=== PATIENT | male | born 1995 | race Two or more races ===

== ENCOUNTER 2020-06-27 12:33 | Inpatient (IN) | payer MEDICAID ==
[~2020-06-27] VITALS: Ht 162.6 cm; Wt 52.3 kg
[2020-06-27] MEDS ORDERED: HALOPERIDOL LACTATE 5 MG/ML VIAL ONE (12:50)
[2020-06-27] MEDS ORDERED: DiphenhydrAMINE HCL 50 MG/ML VIAL ONE (12:51)
[2020-06-27] MEDS ORDERED: LORazepam 2 MG/ML VIAL ONE (12:51)
[2020-06-27] MEDS ORDERED: LORazepam 2 MG/ML VIAL IM ONE ×2 (13:00→18:45)
[2020-06-27] MEDS ORDERED: HALOPERIDOL LACTATE 5 MG/ML VIAL IM ONE ×2 (13:00→18:45)
[2020-06-27] MEDS ORDERED: DiphenhydrAMINE HCL 50 MG/ML VIAL IM ONE ×2 (13:00→18:45)
[2020-06-27 15:17] LABS: AMPHET/METH SCREEN,URINE POSITIVE (NEGATIVE); BARBITURATE SCREEN, URINE NEGATIVE (NEGATIVE); BENZODIAZEPINES SCREEN,URINE POSITIVE (NEGATIVE); CANNABINOID SCREEN,URINE POSITIVE (NEGATIVE); COCAINE SCREEN,URINE NEGATIVE (NEGATIVE); METHADONE SCREEN, URINE NEGATIVE (NEGATIVE); OPIATE SCREEN,URINE NEGATIVE (NEGATIVE)
[2020-06-27 15:18] LABS: PHENCYCLIDINE SCREEN,URINE NEGATIVE (NEGATIVE)
[2020-06-27 16:27] LABS: BASOPHILS % (AUTO) 0.5 % (0.0-2.0); EOSINOPHILS % (AUTO) 0.2 % (1.0-6.0); HEMOGLOBIN 14.3 g/dL (13.5-17.5); LYMPHOCYTES # (AUTO) 1.6 K/uL (1.0-4.8); LYMPHOCYTES % (AUTO) 15.3 % (22.0-44.0); MEAN CORPUSCULAR HEMOGLOBIN 30.9 pg (26.0-34.0); MEAN CORPUSCULAR HGB CONC 34.1 G/dL (31.0-37.0); MEAN CORPUSCULAR VOLUME 91 fL (80-100); MONOCYTES # (AUTO) 0.7 K/uL (0.1-1.0); MONOCYTES % (AUTO) 6.8 % (2.0-9.0); NEUTROPHILS # (AUTO) 7.9 K/uL (1.8-7.7); NEUTROPHILS % (AUTO) 77.2 % (40.0-70.0); PLATELET COUNT (AUTO) 322 K/uL (150-450); RED BLOOD CELL COUNT(AUTO) 4.63 MIL/uL (4.50-5.90); RED CELL DISTRIBUTION WIDTH 12.9 % (11.5-14.5)
[2020-06-27 16:34] LABS: ANION GAP 8 mmol/L (8-16); CALCIUM, TOTAL 8.9 mg/dL (8.8-10.5); CARBON DIOXIDE 28 mmol/L (22-29); CHLORIDE 106 mmol/L (98-107); CREATININE 1.02 mg/dL (0.60-1.30); GLOMERULAR FILTR. RATE CALC > 60 mL/min (>60); GLUCOSE,RANDOM 95 mg/dL (70-110); POTASSIUM 3.8 mmol/L (3.5-5.1); SODIUM SERUM 142 mmol/L (136-145); UREA NITROGEN, BLOOD 7 mg/dL (7-18)
[2020-06-27 16:40] LABS: ALANINE AMINOTRANSFERASE 21 U/L (12-78); ALKALINE PHOSPHATASE 97 U/L (46-116); ASPARTATE AMINOTRANSFERASE 22 U/L (15-37); BILIRUBIN,TOTAL 0.3 mg/dL (0.1-1.0); TOTAL PROTEIN, SERUM 7.1 g/dL (6.4-8.2)
[2020-06-27] MEDS ORDERED: 0.9% SODIUM CHLORIDE 10 ML SYRINGE IVP PRN (20:30)
[2020-06-27] MEDS ORDERED: ONDANSETRON HCL 4 MG/2 ML VIAL IVP PRN ×2 (20:30→21:15)
[2020-06-27] MEDS ORDERED: ACETAMINOPHEN 325 MG TABLET PO PRN ×2 (20:30→21:15)
[2020-06-27] MEDS ORDERED: DIAZEPAM 5 MG/ML 2 ML SYRINGE IVP ONE (21:15)
[2020-06-27 22:32] VITALS: BP 106/60
[2020-06-28 01:12] VITALS: BP 114/72
[2020-06-28 05:47] VITALS: BP 124/56
[2020-06-28] MEDS: ENOXAPARIN SODIUM 40 MG/0.4 ML PF SYRINGE SQ SCH (08:33)
[2020-06-28 08:43] VITALS: BP 110/72
[2020-06-28] MEDS: BENZTROPINE MESYLATE 2 MG TABLET PO SCH ×2 (14:42→20:13)
[2020-06-28] MEDS: OXcarbazepine 300 MG TABLET PO SCH ×2 (14:44→20:13)
[2020-06-28] MEDS: OLANZapine 5 MG TABLET PO SCH ×2 (14:45→20:13)
[2020-06-28 20:10] VITALS: BP 122/56
[2020-06-29 00:20] VITALS: BP 120/58
[2020-06-29 08:17] VITALS: BP 104/60
[2020-06-29] MEDS: OXcarbazepine 300 MG TABLET PO SCH ×2 (08:41→19:58)
[2020-06-29] MEDS: OLANZapine 5 MG TABLET PO SCH ×2 (08:41→19:58)
[2020-06-29] MEDS: BENZTROPINE MESYLATE 2 MG TABLET PO SCH ×2 (08:41→19:58)
[2020-06-29] MEDS: ENOXAPARIN SODIUM 40 MG/0.4 ML PF SYRINGE SQ SCH (08:42)
[2020-06-29 13:37] VITALS: BP 112/73
[2020-06-29 16:08] VITALS: BP 107/64
[2020-06-29] MEDS ORDERED: HALOPERIDOL LACTATE 5 MG/ML VIAL IM ONE ×2 (17:30)
[2020-06-29] MEDS ORDERED: LORazepam 2 MG/ML VIAL IM ONE ×2 (17:30)
[2020-06-29] MEDS ORDERED: DiphenhydrAMINE HCL 50 MG/ML VIAL IM ONE ×2 (17:30)
[2020-06-29 20:16] VITALS: BP 105/68
[2020-06-30] VITALS: BP 99/56
[2020-06-30 04:06] VITALS: BP 104/57
[2020-06-30 07:36] VITALS: BP 123/45
[2020-06-30] MEDS: ENOXAPARIN SODIUM 40 MG/0.4 ML PF SYRINGE SQ SCH ×2 (08:25→08:57)
[2020-06-30] MEDS: OLANZapine 5 MG TABLET PO SCH ×2 (08:26→08:57)
[2020-06-30] MEDS: OXcarbazepine 300 MG TABLET PO SCH ×2 (08:26→08:57)
[2020-06-30] MEDS: BENZTROPINE MESYLATE 2 MG TABLET PO SCH ×2 (08:26→08:57)
== END 2020-06-30 11:10 | DRG 812 ==
LOC: EDBD 12:35 → EMS 12:35 → 6N 20:20
PROVIDERS: ADMIT Internal Medicine; ATTEND Internal Medicine
DX: T43.621A Poisoning by amphetamines, accidental (unintentional), initial encounter (principal); G92 Toxic encephalopathy; F15.10 Other stimulant abuse, uncomplicated; F29 Unspecified psychosis not due to a substance or known physiological condition; Z78.1 Physical restraint status; Z20.828 Contact with and (suspected) exposure to other viral communicable diseases
CPT/HCPCS: 99291; G0480; J1200; J1630; J1650; J2060

== ENCOUNTER 2020-06-30 11:08 | Inpatient (IN) | payer MEDICAID ==
[~2020-06-30] VITALS: Ht 167.6 cm; Wt 51.7 kg
[2020-06-30] MEDS ORDERED: HALOPERIDOL 5 MG TABLET PO PRN (12:00)
[2020-06-30] MEDS ORDERED: ZOLPIDEM TARTRATE 10 MG TABLET PO PRN (12:00)
[2020-06-30 12:30] VITALS: BP 119/72
[2020-06-30 16:00] VITALS: BP 101/61
[2020-06-30] MEDS: BENZTROPINE MESYLATE 2 MG TABLET PO SCH (16:14)
[2020-06-30] MEDS: OXcarbazepine 300 MG TABLET PO SCH (16:15)
[2020-06-30] MEDS: OLANZapine 5 MG TABLET PO SCH (16:15)
[2020-06-30] MEDS: NICOTINE 7 MG/24 HOUR PATCH TD SCH (16:27)
[2020-06-30] MEDS: LORazepam 2 MG TABLET PO PRN (16:38)
[2020-07-01 08:00] VITALS: BP 123/66
[2020-07-01] MEDS ORDERED: MAGNESIUM HYDROXIDE SUSPENSION 30 ML UDCUP PO PRN (08:15)
[2020-07-01] MEDS ORDERED: IBUPROFEN 400 MG TABLET PO PRN (08:15)
[2020-07-01] MEDS ORDERED: ALBUTEROL SULFATE HFA 90 MCG/PUFF 8 GM INHALER IH PRN (08:15)
[2020-07-01] MEDS ORDERED: GuaiFENesin/D-METHORPHAN [SUGAR-FREE] 200-20MG/10 ML SYRUP UDCUP PO PRN (08:15)
[2020-07-01] MEDS ORDERED: DOCUSATE SODIUM 100 MG CAPSULE PO PRN (08:15)
[2020-07-01] MEDS ORDERED: NICOTINE 14 MG/24 HOUR PATCH TD PRN (08:15)
[2020-07-01] MEDS ORDERED: PETROLATUM,WHITE 28 GM JELLY TP PRN (08:15)
[2020-07-01] MEDS ORDERED: ACETAMINOPHEN 325 MG TABLET PO PRN (08:15)
[2020-07-01] MEDS ORDERED: MAG HYDROX/AL HYDROX/SIMETH ES 30 ML SUSPENSION UDCUP PO PRN (08:15)
[2020-07-01] MEDS ORDERED: LOPERAMIDE HCL 2 MG CAPSULE PO PRN (08:15)
[2020-07-01] MEDS ORDERED: ONDANSETRON HCL 4 MG TABLET PO PRN ×2 (08:15)
[2020-07-01] MEDS ORDERED: CloNIDine HCL 0.1 MG TABLET PO PRN (08:15)
[2020-07-01] MEDS: OLANZapine 5 MG TABLET PO SCH ×2 (08:45→15:42)
[2020-07-01] MEDS: NICOTINE 7 MG/24 HOUR PATCH TD SCH (08:45)
[2020-07-01] MEDS: OXcarbazepine 300 MG TABLET PO SCH ×2 (08:45→15:42)
[2020-07-01] MEDS: BENZTROPINE MESYLATE 2 MG TABLET PO SCH ×2 (08:46→15:42)
[2020-07-01] MEDS: LORazepam 2 MG TABLET PO PRN ×2 (09:37→15:42)
[2020-07-01 19:32] VITALS: BP 118/70
[2020-07-02] MEDS: LORazepam 2 MG TABLET PO PRN (06:19)
[2020-07-02] MEDS: BENZTROPINE MESYLATE 2 MG TABLET PO SCH ×2 (08:19→16:02)
[2020-07-02] MEDS: OLANZapine 5 MG TABLET PO SCH ×2 (08:19→16:02)
[2020-07-02] MEDS: OXcarbazepine 300 MG TABLET PO SCH ×2 (08:19→16:02)
[2020-07-02] MEDS: NICOTINE 7 MG/24 HOUR PATCH TD SCH (08:39)
[2020-07-02 08:50] VITALS: BP 118/64
[2020-07-02] MEDS ORDERED: OLAN5TAB2 PO (12:52)
[2020-07-02] MEDS ORDERED: BENZ2TAB10 PO (12:52)
[2020-07-02] MEDS ORDERED: OXCA300T57 PO (12:52)
[2020-07-02 16:00] VITALS: BP 108/61
== END 2020-07-02 16:45 | disposition home or self-care (01) | DRG 885 ==
LOC: EDSTATUS 11:12 → 3EC 11:15
PROVIDERS: ADMIT Psychiatry & Neurology Psychiatry; ATTEND Psychiatry & Neurology Psychiatry
DX: F20.9 Schizophrenia, unspecified (principal); F15.10 Other stimulant abuse, uncomplicated; F17.210 Nicotine dependence, cigarettes, uncomplicated; Z79.899 Other long term (current) drug therapy; Z81.8 Family history of other mental and behavioral disorders
CPT/HCPCS: Z7610